=== PATIENT | female | born 1965 | race Caucasian/White ===

== ENCOUNTER 2021-03-05 08:46 | Inpatient (IN) | payer BC, OTHER ==
[~2021-03-05] VITALS: Ht 167.6 cm; Wt 89.6 kg
[2021-03-05] MEDS ORDERED: SODIUM CHLORIDE 0.9% 1,000ML IVBOLUS ONE (10:00)
[2021-03-05] MEDS ORDERED: SODIUM CHLORIDE 0.9% 1,000 ML IV ONE ×2 (10:00→12:30)
[2021-03-05] MEDS ORDERED: SODIUM CHLORIDE FLUSH 10ML SYR IVF ONE (10:00)
[2021-03-05] MEDS ORDERED: ONDANSETRON 2MG/ML, 2ML IVPush ONE ×2 (10:00→16:30)
[2021-03-05] MEDS ORDERED: MORPHINE SULFATE 4 MG/ML, 1ML ONE ×4 (10:02→16:30)
[2021-03-05] MEDS ORDERED: ONDANSETRON 2MG/ML, 2ML ONE (10:02)
--- NOTE | 2021-03-05 10:04 | NUR ---
TASK RN: PT WHEELED TO BR PER PT REQUEST. PT ABLE TO TRANSFER SELF TO TOILET, DAUGHTER ASSISTING.
[2021-03-05] MEDS: MORPHINE SULFATE 4 MG/ML, 1ML IVPush PRN ×6 (10:22→21:33)
[2021-03-05] MEDS ORDERED: PLEASE ENTER HEIGHT AND WEIGHT MC SCH (10:30)
[2021-03-05 10:39] LABS: BASOPHILS % (AUTO) 1 % (0-1); EOSINOPHILS % (AUTO) 0 % (1-7); LYMPHOCYTES % (AUTO) 20 % (22-44); MEAN CORPUSCULAR HEMOGLOBIN 31.9 pg (27.0-34.8); MEAN CORPUSCULAR HGB CONC 33.5 g/dL (32.4-35.8); MEAN PLATELET VOLUME 10.1 fL (7.4-10.4); MONOCYTES % (AUTO) 3 % (2-9); NEUTROPHILS % (AUTO) 76 % (42-75); PLATELET COUNT 192 x10^3/uL (130-400); RED BLOOD COUNT 5.21 x10^6/uL (3.82-5.3); RED CELL DISTRIBUTION WIDTH 14.1 % (9.6-15.2)
[2021-03-05 10:50] LABS: ALANINE AMINOTRANSFERASE 29 U/L (12-78); ALBUMIN 3.6 g/dL (3.4-5.0); ANION GAP 9 mmol/L (5-15); CALCIUM 9.3 mg/dL (8.5-10.1); CHLORIDE 109 mmol/L (98-107); CREATININE 0.88 mg/dL (0.55-1.02)
[2021-03-05 10:54] LABS: ALKALINE PHOSPHATASE 82 U/L (45-117); BILIRUBIN,TOTAL 0.4 mg/dL (0.2-1.0); TOTAL PROTEIN 7.5 g/dL (6.4-8.2); TROPONIN I < 0.015 ng/mL (0.000-0.045)
--- NOTE | 2021-03-05 10:55 | NUR ---
pt denies relief of pain. 2nd dose of medication given. placed on 2lt nc for support.
--- NOTE | 2021-03-05 11:29 | NUR ---
pt to CT
[2021-03-05] MEDS ORDERED: OMNIPAQUE 350 MG/ML, 100ML BOTTLE ONE (11:42)
--- NOTE | 2021-03-05 12:02 | NUR ---
in to tell patient she has appendicitis. Report to Mert for break.
--- NOTE | 2021-03-05 12:12 | NUR ---
Pt gave jewelry and belongings to family.
[2021-03-05] MEDS ORDERED: SODIUM CHLORIDE FLUSH 10ML SYR IVF PRN (12:30)
[2021-03-05] MEDS ORDERED: CEFOTETAN PMX 1GM/50ML 50 ML IVPB ONE (12:31)
--- NOTE | 2021-03-05 13:39 | NUR ---
pt up to bathroom with assistance. Awaiting surgery
[2021-03-05] MEDS ORDERED: MORPHINE SULFATE 4 MG/ML, 1ML IVPush PRN (16:30)
--- NOTE | 2021-03-05 17:59 | NUR ---
Updated patient and family on visiting hours. Patient already threatening to throw a "fit". To floor
[2021-03-05 19:22] VITALS: BP 117/70
[2021-03-05] MEDS ORDERED: [UNRECOGNIZED DRUG - CODE] PO (20:07)
[2021-03-05] MEDS ORDERED: MIDAZOLAM 1 MG/ML, 2ML ONE (20:08)
[2021-03-05] MEDS ORDERED: FENTANYL PF 250 MCG/5ML ONE (20:08)
[2021-03-05] MEDS ORDERED: PROPOFOL 10 MG/ML, 20ML ONE (20:11)
[2021-03-05] MEDS ORDERED: ROCURONIUM 10MG/ML,5ML ONE (20:13)
[2021-03-05] MEDS ORDERED: SUCCINYLCHOLINE 20 MG/ML, 10ML ONE (20:13)
[2021-03-05] MEDS ORDERED: BUPIVACAINE/PF 0.5% ONE (20:17)
[2021-03-05] MEDS ORDERED: EPINEPHRINE 1 MG/ML, 1ML ONE (20:17)
[2021-03-06] MEDS ORDERED: DEXAMETHASONE 4 MG/ML, 5ML ONE (00:24)
[2021-03-06] MEDS ORDERED: OXYcodone 5 MG/5 ML ORAL.SOL UDC PO PRN (00:30)
[2021-03-06] MEDS ORDERED: PROMETHAZINE 25 MG/ML, 1ML IVPush PRN (00:30)
[2021-03-06] MEDS ORDERED: DIPHENHYDRAMINE 50 MG/ML, 1ML IVPush PRN ×2 (00:30)
[2021-03-06] MEDS ORDERED: FENTANYL PF 100 MCG/2ML IV PRN (00:30)
[2021-03-06] MEDS ORDERED: PROMETHAZINE 12.5 MG SUPP PR PRN (00:30)
[2021-03-06] MEDS ORDERED: ONDANSETRON 2MG/ML, 2ML IVPush PRN ×2 (00:30→02:30)
[2021-03-06] MEDS ORDERED: EPHEDRINE 50 MG/ML, 1ML IVPush PRN (00:30)
[2021-03-06] MEDS ORDERED: MIDAZOLAM 1 MG/ML, 2ML IV PRN (00:30)
[2021-03-06] MEDS ORDERED: ACETAMINOPHEN 325 MG TABLET PO PRN (00:30)
[2021-03-06] MEDS ORDERED: MEPERIDINE/PF 25MG/0.5ML IVPush PRN (00:30)
[2021-03-06] MEDS ORDERED: ALBUTEROL SULFATE 2.5 MG/3 ML NPPB PRN ×2 (00:30→01:30)
[2021-03-06] MEDS ORDERED: DIAZEPAM 5 MG/ML, 2ML IVPush PRN (00:30)
[2021-03-06] MEDS ORDERED: LORazepam 2 MG/ML, 1ML IVPush PRN (00:30)
[2021-03-06] MEDS ORDERED: LABETALOL 5MG/ML, 20ML IV PRN (00:30)
[2021-03-06] MEDS ORDERED: HYDROmorphone 1 MG/ML, 1ML INJ IVPush PRN (00:30)
[2021-03-06] MEDS ORDERED: hydrALAzine 20 MG/ML, 1ML IV PRN (00:30)
[2021-03-06] MEDS ORDERED: BUPIVACAINE/PF-EPI 0.5% 1:200K IM ONE (00:33)
[2021-03-06] MEDS ORDERED: SUGAMMADEX 200 MG/2 ML IVPush ONE (00:45)
[2021-03-06] MEDS ORDERED: ALBUTEROL HFA 90 MCG/SPRAY ONE (01:12)
[2021-03-06] MEDS ORDERED: FENTANYL PF 100 MCG/2ML ONE (01:16)
[2021-03-06] MEDS ORDERED: ALBUTEROL SULFATE 2.5 MG/3 ML ONE (01:19)
[2021-03-06] MEDS ORDERED: ALBUTEROL HFA 90 MCG/SPRAY INH PRN (01:30)
[2021-03-06 02:07] VITALS: BP 114/74
[2021-03-06] MEDS ORDERED: LACTATED RINGERS 1,000 ML IV SCH (02:30)
[2021-03-06] MEDS ORDERED: AMOXICILLIN/CLAV 875-125MG TABLET PO SCH (09:00)
[2021-03-06 09:01] VITALS: BP 115/71
[2021-03-06] MEDS: OXYcodone/APAP 5/325MG TABLET PO PRN ×2 (09:10→13:25)
== END 2021-03-06 13:45 | disposition home or self-care (01) | DRG 340 ==
LOC: ED 10:49 → EDIP 12:10 → 4NE 17:35
PROVIDERS: ADMIT Colon & Rectal Surgery; ATTEND Colon & Rectal Surgery
PROC: 0DTJ4ZZ Resection of Appendix, Percutaneous Endoscopic Approach (ICD-10-PCS; principal; 2021-03-06)
DX: K35.32 Acute appendicitis with perforation, localized peritonitis, and gangrene, without abscess (principal); Z20.822 Contact with and (suspected) exposure to COVID-19; F17.200 Nicotine dependence, unspecified, uncomplicated
CPT/HCPCS: 36415; 96374; 96375; 96376; 99285; J7613; S0020; 71045; 74177; 80053; 83690; 84484; 85025; 87635; 88304; 93005; 94640; C1729; G0378; J0171; J1100; J2250; J2405; J2704; J3010; Q9967; J0330; J2270; J7030; J7120